=== PATIENT | male | born 1995 | race Hispanic/Latino ===

== ENCOUNTER 2022-03-03 19:21 | Emergency (ER) | payer OTHER, SELFPAY ==
[2022-03-03 19:23] VITALS: BP 130/75; PULSE 73; RESP 14; TEMP 36.2; O2SAT 100; BMI 32.2
--- NOTE | 2022-03-03 20:03 | EX.ED.VIS.EY ---
HPI History of Present Illness Chief Complaint: Eye Problem Informant: patient Limited: language barrier (Patient speaks Hungarian but there is a family member who is able to translate easily) Onset/Context/Timing Location: Left Eye Onset: Today Context: Gradual Onset Timing: Continuous Worsened by: Light Relieved by: Nothing Associated Symptoms Associated Symptoms - Eyes: Drainage (Watery), Foreign body sensation, Pain, Photophobia and Redness History of injury: No Visual correction: None Narrative Narrative: Patient presents with left eye pain that began today. Patient states it has gradually gotten worse today. Patient states he feels like there is something in his left eye. Patient admits to redness and pain. Patient admits to some watery drainage. Patient denies any trauma or injury. Patient states light makes his pain worse. Patient denies any visual changes. Patient denies any fevers or chills. Patient denies any nausea or vomiting. PFSH PFSH Medical History no medical history no medical history Allergy/AdvReac Type Severity Reaction Status Date / Time No Known Allergies Allergy Verified 03/03/22 19:23 Surgical History no surgical history no surgical history Social History Smoking Status: Never smoker ROS ROS ED Constitutional Constitutional ED: Denies chills or fever(s) Eyes Eyes: Reports as per HPI; Denies blurry vision or change in vision ENT ENT ED: Denies rhinorrhea or sore throat Cardiovascular Cardiovascular: Denies chest pain or palpitations Respiratory/Chest Respiratory/Chest: Denies cough or dyspnea Gastrointestinal Gastrointestinal: Denies nausea or vomiting Genitourinary Genitourinary ED: Denies dysuria or hematuria Musculoskeletal Musculoskeletal: Denies back pain or neck pain Integumentary Denies abscess or rash Neurologic Neurologic: Denies headache(s) or weakness Allergic/Immunologic Allergic/Immunologic ED: Denies mouth swelling or urticaria EXAM Physical Exam Const Vital Signs: 03/03/22 19:23 Temperature 97.2 F L Temperature Source Temporal Pulse Rate 73 Respiratory Rate 14 Blood Pressure 130/75 H Blood Pressure Mean 93 Pulse Ox 100 Oxygen Delivery Method Room Air Positive well nourished and well developed General Appearance ED: well developed and NAD HEENT atraumatic Eyes Alignment: alignment normal Periorbital: periorbital findings normal Eyelid: eyelids normal Conjunctiva: conjunctiva abnormal left Details: injection Positive for diffuse Cornea: cornea abnormal Positive for left Cornea - Left Eye: Positive for abrasion Details: Positive for punctate and at clock position (6) Pupil: PERRL EOM: Negative for EOM abnormal Slit Lamp: slit lamp exam performed with fluorescein, lids/lashes/lacrimal system normal appearing, conjunctiva/sclera diffuse conjunctiva injection, cornea linear corneal abrasion and anterior chamber normal appearing and normal depth Neck supple and no JVD Neuro oriented x3, CN's II-XII intact bilaterally, moves all extremities and no sensory deficits noted Sensorium / Orientation: alert Motor Exam: strength 5/5 throughout MDM MDM MDM Narrative Medical decision making narrative: Patient was examined under slit-lamp. Tetracaine and fluorescein dye was applied. There is a corneal abrasion at the 6 o'clock position of the left cornea. There are no foreign bodies visualized. Anterior chamber was clear. Patient was given gentamicin ophthalmic ointment. Patient was instructed to follow-up with an mechanical facilities technician in 2 to 3 days. Patient and family understood and were agreeable with the plan. All questions were answered. Discharge Plan Triage Chief Complaint: Eye Problem ED Provider: Bill Chirinos Dx/Rx/DC Orders Clinical Impression: Abrasion of left cornea Instructions: ED Corneal Abrasion Primary Care Provider: Care Physician,No Primary Referrals: Gordon Bernabe MD [STAFF PHYSICIAN] - 2 Days Care Physician,No Primary [Primary Care Provider] - Clinic,NOW [NON-STAFF] - 2 Days Print Language: Hungarian Disposition Disposition: Home, Self Care
[2022-03-03] MEDS: Fluorescein 1 MG STRIP 1 STRIP OPHTHALMIC (21:20)
[2022-03-03] MEDS: Tetracaine 0.5% Ophthalmic Bottle 1 DRP OPHTHALMIC (21:20)
[2022-03-03] MEDS: Gentamicin Sulfate 1 OPTH.BTL 2 DRP LEFT EYE (21:51)
== END 2022-03-03 21:56 | disposition home or self-care (01) ==
PROVIDERS: Emergency Provider Emergency Medicine; Visit Provider Emergency Medicine
DX: S05.02XA Injury of conjunctiva and corneal abrasion without foreign body, left eye, initial encounter (principal); X58.XXXA Exposure to other specified factors, initial encounter
CPT/HCPCS: 99282

== ENCOUNTER → 2024-09-07 | Outpatient (CLI) | payer SELFPAY ==
--- NOTE | 2024-09-07 13:53 | RAD_ITS ---
INDICATION: right middle finger injury EXAMINATION/TECHNIQUE: X-RAY - RIGHT HAND XR Fingers Min 2 Views 3 VIEWS COMPARISON: No relevant prior comparison study available FINDINGS: SOFT TISSUES: No soft tissue swelling or gas. No radiopaque foreign body. BONES/JOINTS: There is a comminuted fracture of the mid and proximal diaphysis of the third proximal phalanx ventral displacement of the distal phalanx. Preservation of the joint space.. No sclerotic or destructive changes observed. RAD/Finger(s) Min 2 Views IMPRESSION: Third proximal phalanx fracture. Electronically Signed: Inés Goodrich MD at 14:51 EST ,
== END | disposition home or self-care (01) ==
PROVIDERS: Referring Provider Physician Assistant; Visit Provider Physician Assistant
DX: S62.612A Displaced fracture of proximal phalanx of right middle finger, initial encounter for closed fracture (principal); X58.XXXA Exposure to other specified factors, initial encounter
CPT/HCPCS: 73140